=== PATIENT | male | born 1985 | race Caucasian/White ===

== ENCOUNTER → 2018-08-26 | Outpatient (CLI) | payer OTHER ==
--- NOTE | 2018-08-26 14:07 | MRI ---
EXAM DESCRIPTION: Lumbar Spine w/o Contrast : Magnetic Resonance Imaging. CLINICAL HISTORY: M54.5 COMPARISON: Radiographs of the lumbar spine 08/25/2018. TECHNIQUE: Multiplanar, multiple standard sequences, non contrast MRI, lumbar spine. FINDINGS: L5-S1: Disc desiccation and minimal disc space loss. Posterior midline and right paracentral disc protrusion 6 mm abutting the midline and right paracentral thecal sac and the exiting descending right S1 nerve. Disc bulge into the bilateral foramina abutting the exiting L5 nerves with moderate foraminal narrowing more on the right. Disc also migrates approximately 3 mm below the S1 superior endplate. Posterior elements unremarkable. L4-5: Disc desiccation and moderate disc space loss mainly posterior. Posterior midline and left paracentral protrusion 5 mm in the midline and 7 mm to the left of midline. Extrusion of disc 8 mm below the endplate effacing the left subarticular recess and displacing the descending left L5 nerve. Left paracentral mild canal stenosis. Bilateral mild foraminal narrowing by bulging disc more on the left than the right. Posterior elements unremarkable. L3-4: Minimal disc space loss and disc desiccation. Posterior midline and left paracentral disc bulge 6 mm. Slight extrusion to the left of midline encroaching on the left subarticular recess with left mild paracentral stenosis. Bilateral mild foraminal narrowing. Posterior elements unremarkable. L2-3: Disc space maintained with normal signal in the disc. No bulging. Posterior elements unremarkable. Canal and foramina are patent. L1-L2: Normal signal in the disc with disc space preserved. Posterior elements are unremarkable. Canal and foramina are patent. Conus terminates at L1. T12-L1: Normal signal in the disc with disc space preserved. Posterior elements unremarkable. Canal and foramina are patent. No scoliosis. Paravertebral soft tissues unremarkable.. Circumscribed hyperintense T1, T2, and inversion recovery signal in the base of the right T12 pedicle. Consistent with a hemangioma. Otherwise normal marrow signal in the remaining vertebral bodies and the posterior elements. Artifact overlying the L1 vertebral body on the sagittal sequences. Vertebral bodies are not compressed at any level. IMPRESSION: 1. Posterior midline and right paracentral L5-S1 disc protrusion encroaching on the thecal sac and abutting the descending right S1 nerve. Mild canal stenosis. 2. Posterior midline and left paracentral L4-5 disc herniation with inferior extrusion encroaching on the thecal sac and causing left subarticular recess stenosis and impingement of the descending left L5 nerve. Mild to moderate canal stenosis. 3. Posterior broad-based disc herniation with minimal extrusion below the disc space effacing the left subarticular recess and mild canal stenosis. Electronically signed by: Jl Barnes MD 08/26/2018 2:05 PM [facility]
== END ==
LOC: MRI 11:57
PROVIDERS: ATTEND Family Medicine
DX: G57.32 Lesion of lateral popliteal nerve, left lower limb (principal); M21.372 Foot drop, left foot; M51.27 Other intervertebral disc displacement, lumbosacral region

== ENCOUNTER → 2018-09-11 | Outpatient (CLI) | payer OTHER ==
--- NOTE | 2018-09-13 15:24 | US ---
EXAM DESCRIPTION: Renal: Ultrasound. CLINICAL HISTORY: 33 years Male HTN COMPARISON: Bilateral renal arterial Doppler evaluation on the same visit. TECHNIQUE: Transcutaneous scanning: Two-dimensional and Doppler modes. Minimal technical limitations due to patient body habitus. FINDINGS: Right kidney measures 12.4 x 5.6 x 4.9 cm; mid-renal cortical thickness normal . 1.4 cm cyst mid kidney. Otherwise normal echogenicity. No hydronephrosis No echogenic stones. Smooth contour of the kidney with no perinephric fluid. Normal vascularity. Proximal ureter not visualized. Left kidney measures 9.2 x 6.7 x 5.8 cm; mid-renal cortical thickness normal. Normal echogenicity. No hydronephrosis. No echogenic stones. Lobulated contour of the kidney with no perinephric fluid. Normal vascularity.. Proximal ureter not visualized. Urinary bladder was visualized. Prevoid volume 18.8 mL. Ureteral jet in the bladder seen bilaterally by Doppler. Post void volume not measured. Abdominal aorta: Normal caliber from proximal segment to the distal bifurcation IMPRESSION: 1. Bilateral kidneys unremarkable except for 1.4 cm cyst in the mid right kidney. Ureters were not seen. 2. Small urinary bladder. Bilateral ureteral jets seen by Doppler. No free fluid in the pelvis. Electronically signed by: Jl Barnes MD 09/13/2018 3:21 PM [employer] [employer]
== END ==
LOC: GMAE 11:01
PROVIDERS: ATTEND Family Medicine
DX: I10 Essential (primary) hypertension (principal); N28.1 Cyst of kidney, acquired

== ENCOUNTER → 2018-11-16 | Outpatient (CLI) | payer OTHER | LOC: SL 19:56 | PROVIDERS: ATTEND Family Medicine | DX: R06.81 Apnea, not elsewhere classified (principal); G47.9 Sleep disorder, unspecified; R06.83 Snoring ==

== ENCOUNTER → 2019-12-14 | Outpatient (CLI) | payer OTHER | LOC: GMAE 12:14 | PROVIDERS: ATTEND Family Medicine | DX: Z00.00 Encounter for general adult medical examination without abnormal findings (principal) ==

== ENCOUNTER → 2019-12-15 | Outpatient (CLI) | payer SELFPAY | LOC: GMAE 09:54 | PROVIDERS: ATTEND Family Medicine | DX: I10 Essential (primary) hypertension (principal) ==